=== PATIENT | female | born 1980 | race Caucasian/White ===

== ENCOUNTER 2016-08-16 05:20 | Emergency (ER) | payer OTHER ==
[~2016-08-16] VITALS: Ht 152.4 cm; Wt 91.3 kg
[~2016-08-16 05:20] MED LIST: AUGMENTIN875 MG PO; BACTRIM,SEPT1 TABLET PO; CEFDINIR300 MG PO; CLARITIN10 M3 PO; FIORICET,ESG1 TABLET PO; GUAIFENESIN WI120 ML PO; HYDROCODON-ACE1 EAC7 PO; IBUPROFEN600 MG PO; INDOCIN25 MG PO; MOTRIN800 MG PO; NAPROSYN500 MG PO; NOHOMEMEDS; NON ADHERENT P1 EACH TP; NORCO 7.5/321 TABLET PO; PERCOCET 5/31 TABLET PO; PROMETHAZINE HC25 M1 PO; VALIUM5 MG PO; ZOFRAN4 MG PO
[2016-08-16] MEDS ORDERED: OCUFLOX 0.100 DROP/5 BOTH EYES (05:39)
[2016-08-16] MEDS ORDERED: ZADITOR 0.100 DROP/5 BOTH EYES (05:39)
[2016-08-16 05:59] VITALS: BP 127/60
== END 2016-08-16 05:59 | disposition home or self-care (01) ==
LOC: EME 05:20
DX: H10.9 Unspecified conjunctivitis (principal)
CPT/HCPCS: 99281; 99283

== ENCOUNTER 2017-01-15 02:46 | Emergency (ER) | payer OTHER ==
[~2017-01-15] VITALS: Ht 154.9 cm; Wt 86.3 kg
[~2017-01-15 02:46] MED LIST changes: +OCUFLOX 0.100 DROP/5 BOTH EYES; +ZADITOR 0.100 DROP/5 BOTH EYES
[2017-01-15 02:54] VITALS: BP 118/80
[2017-01-15 05:43] LABS: HEMATOCRIT 39.6 % (36.0-46.0); MCH 30.9 PG (29.0-34.0); MCHC 33.1 G/DL (30.0-36.0); MCV 93.4 FL (83-99); MEAN PLAT.VOLUME 10.3 uM^3 (9.5-12.4); PLATELET COUNT 326 K/uL (156-360); RBC DIS.WIDTH-CV 12.6 % (11.8-14.6); RBC DIS.WIDTH-SD 43.5 % (39-53); RED BLOOD COUNT 4.24 M/uL (3.80-5.20); WHITE BLOOD COUNT 11.2 K/uL (4.1-10.2)
[2017-01-15 05:55] LABS: CHLORIDE 107 mEq/L (99-109); POTASSIUM 3.9 mEq/L (3.7-5.4); SODIUM 138 mEq/L (136-147)
[2017-01-15 05:57] LABS: GLUCOSE 95 mg/dL (70-99)
[2017-01-15 05:59] LABS: ANION GAP 12 MEQ/L (2-14)
[2017-01-15 06:01] LABS: GFR ESTIMATE (CALCULATED) > 59 mL/min/
[2017-01-15 06:02] LABS: UREA NITROGEN (BUN) 13 mg/dL (9-23)
[2017-01-15] MEDS ORDERED: NORCO 5/3251 TABLET PO (06:09)
[2017-01-15 06:29] LABS: INTER. NORMALIZED RATIO 1.1; PROTHROMBIN TIME 11.6 SEC (10.2-12.9)
== END 2017-01-15 06:23 | disposition home or self-care (01) ==
LOC: EXP 02:46 → EME 02:46 → EXP 06:23
PROVIDERS: Emergency Medicine
DX: M25.561 Pain in right knee (principal); M79.89 Other specified soft tissue disorders
CPT/HCPCS: 73564; 80048; 85027; 85610; 85730; 93971; 99281; 99283